=== PATIENT | male | born 1995 | race Caucasian/White ===

== ENCOUNTER 2017-11-08 17:09 | Emergency (ER) | payer OTHER ==
[2017-11-08] MEDS ORDERED: Sodium Chloride 0.9% 100 ML ONE (17:34)
[2017-11-08] MEDS ORDERED: Ondansetron HCl/PF 4 MG/2 ML Vial ONE (17:34)
[2017-11-08] MEDS ORDERED: cefTRIAXone\\ROCEPHIN 2 GM VIAL ONE (17:34)
[2017-11-08 17:45] LABS: #Basophils 0.1 thou/uL (0.0-0.2); #Eosinphils 0.1 thou/uL (0.0-0.7); #Lymphocytes 1.2 thou/uL (1.20-3.40); #Monocytes 1.1 thou/uL (0.11-0.59); #Neutrophils 10.9 thou/uL (1.40-6.50); %Basophils 0.5 % (0.0-1.0); %Eosinophils 0.4 % (0.0-10.0); %Lymphocytes 9.3 % (21.0-51.0); %Monocytes 7.9 % (0.0-10.0); %Neutrophils 81.9 % (42.0-75.0); Hemoglobin 15.6 g/dL (14.0-18.0); Mean Corpuscular HGB CONC 33.2 g/dL (32.0-36.0); Mean Corpuscular Hemoglobin 29.2 pg (27.0-31.0); Mean Platelet Volume 6.9 fL (7.4-10.4); Platelet Count 249 thou/uL (130-400); RBC Distribution Width 12.1 % (11.5-14.5); Red Blood Cell (RBC) Count 5.34 mill/uL (4.70-6.10); White Blood Cell (WBC) Count 13.3 thou/uL (4.8-10.8)
[2017-11-08 17:56] LABS: ALT (SGPT) 33 U/L (8-55); AST (SGOT) 28 U/L (5-34); Albumin 4.7 g/dL (3.5-5.0); Alkaline Phosphatase 45 U/L (40-150); Anion Gap 15 mmol/L (10-20); BUN (Urea Nitrogen) 12 mg/dL (8.9-20.6); Bilirubin, Total 1.2 mg/dL (0.2-1.2); CK (CPK) 127 U/L (30-200); Calc. Creatinine Clearance 0 mL/min (70-130); Calcium 9.6 mg/dL (7.8-10.44); Carbon Dioxide 23 mmol/L (22-29); Chloride 102 mmol/L (98-107); Estimated GFR-MDRD 85; Globulin 2.7 g/dL (2.4-3.5); Glucose 96 mg/dL (70-105); Potassium 3.9 mmol/L (3.5-5.1); Protein, Total 7.4 g/dL (6.0-8.3); Sodium 136 mmol/L (136-145)
--- NOTE | 2017-11-08 18:01 | CT ---
CT OF THE BRAIN WITHOUT CONTRAST: Date: 11/08/17 COMPARISON: None. HISTORY: Fever and headache/neck pain. TECHNIQUE: Multiple contiguous axial images were obtained in a CT of the brain without contrast. FINDINGS: The brain is normal in morphology and attenuation without focal lesions or confluent areas of infarct ion. There is no evidence of hydrocephalus, intracranial hemorrhage, or extra-axial fluid collection. The calvarium and overlying soft tissues are unremarkable. The visualized paranasal sinuses and masto id air cells are well aerated. IMPRESSION: No evidence of acute intracranial abnormality. POS: [facility]
[2017-11-08] MEDS ORDERED: Acetaminophen 500 MG TAB ONE (18:02)
[2017-11-08 18:58] LABS: CSF Source CSF; Clarity Clear (Clear); RBC Count - Manual 1 /cumm (None Seen); Tube # 4; WBC/NonHematics Count - Manual 0 /cumm (0-5)
[2017-11-08 18:59] LABS: Color Of CSF Supernatant COLORLESS (Colorless); Tube # 2; Unspun CSF Color COLORLESS (Colorless)
[2017-11-08 19:12] LABS: CSF, Glucose 55 mg/dl (40-70); CSF, Protein 34 mg/dL (15-40)
[2017-11-08] MEDS ORDERED: Ketorolac Tromethamine 30 MG/ML VIAL ONE (19:15)
[2017-11-08] MEDS ORDERED: diphenhydrAMINE 50 MG/ML VIAL ONE (19:48)
[2017-11-08] MEDS ORDERED: Metoclopramide HCl 10 MG/2 ML VIAL ONE (19:48)
== END 2017-11-08 21:15 | disposition home or self-care (01) ==
LOC: SCSER 17:09
DX: B34.9 Viral infection, unspecified (principal); R51 Headache
CPT/HCPCS: 36415; 62270; 70450; 80053; 82550; 82945; 83605; 84157; 85025; 87040; 87070; 87205; 89051; 96365; 96366; 96367; 96375; J0696; J1200; J1885; J2405; J2765; J7050